=== PATIENT | female | born 1955 | race Caucasian/White ===

== ENCOUNTER 2023-04-26 14:08 | Outpatient (AMB) | payer MEDICARE, SELFPAY ==
--- NOTE | 2023-04-26 14:24 | A.OFFVIS_ITS ---
Intake Vital Signs 04/26/23 14:40 Height 5 ft 2 in Weight 155 lb 10.342 oz BMI 28.5 BP 164/72 H Blood Pressure Location Lt brachial Position Sitting Pulse 84 Temp 97.7 F Temp Source Skin Pulse Oximetry (%) 98 Intake Visit Reasons: Multiple Joint Pain Intake Note: * New pt presents today for joint pain consult. Previously seen by ATC * C/o pain in multiple areas. 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 Accompanied by: Self / Same As Patient Allergies adhesive tape Adverse Reaction (Unknown, Verified 04/26/23 14:46) Itching amlodipine [From Norvasc] Adverse Reaction (Unknown, Verified 04/26/23 14:46) Unknown gabapentin [From Neurontin] Adverse Reaction (Unknown, Verified 04/26/23 14:46) Nausea and Vomiting, Vision changes acetaminophen [From Percocet] Adverse Reaction (Verified 04/26/23 14:46) Vomiting amitriptyline Adverse Reaction (Verified 04/26/23 14:46) Hallucinations brompheniramine [From Bromfed] Adverse Reaction (Verified 04/26/23 14:46) Hives cortisone Adverse Reaction (Verified 04/26/23 14:46) Shortness of Breath, Wheezing diphenhydramine [From Benadryl] Adverse Reaction (Verified 04/26/23 14:46) Hives nabumetone [From Relafen] Adverse Reaction (Verified 04/26/23 14:46) Unknown oxycodone [From Percocet] Adverse Reaction (Verified 04/26/23 14:46) Vomiting phenylephrine [From Bromfed] Adverse Reaction (Verified 04/26/23 14:46) Hives pregabalin [From Lyrica] Adverse Reaction (Verified 04/26/23 14:46) Edema entire body pseudoephedrine [From Bromfed] Adverse Reaction (Verified 04/26/23 14:46) Hives Medication List - Last Reconciled 04/26/23 by Amari Chou MD albuterol sulfate 90 mcg/actuation (ProAir HFA) 2 puffs inhalation Q6H PRN cholecalciferol (vitamin D3) 25 mcg PO DAILY cyclobenzaprine 10 mg PO TID PRN evening primrose oil 1,000 mg PO BID PRN fenofibrate 160 mg PO DAILY garlic extract 1,000 mg PO DAILY ibuprofen 800 mg PO Q6H PRN lisinopril-hydrochlorothiazide 20-25 mg 1 tab PO DAILY magnesium 250 mg PO DAILY metoprolol succinate ER 25 mg PO DAILY omega 4-svn-[id number]-fish oil 300-1,000 mg (Fish Oil) 1 cap PO BID vitamin B complex (B Complex-Vitamin B12 tablet) 1 tab PO DAILY HPI HPI Comments History of Present Illness Details This is a 68-year-old female who presents for evaluation of multiple joint pain. She was diagnosed with fibromyalgia many years ago and she received a few medications and she had side effects. She had managed fibromyalgia over the years with staying active. She mentions however that she is starting to feel different pain. The pain is more in her bones rather than her muscles. She is having some pain and stiffness in her hands, occasionally difficultly making a tight fist. She has been having pain in her tailbone, worse with sitting down, sometimes she has to put a pillow under her. This has been ongo ing for the last 6 months or so. Denies any trauma to her buttock area. Pain does not radiate down worse. She is unaware of any family history of autoimmune rheumatic disease. [facility] Medical History Asthma Essential hypertension Fibromyalgia History of ovarian cancer Hypothyroidism IBS (irritable bowel syndrome) Osteopenia Surgical History H/O cervical spine surgery H/O shoulder surgery History of lumbar surgery Hx of cholecystectomy Hx of colonoscopy S/P NOEMÍ (total abdominal hysterectomy) Family History Mother Osteoarthritis Father Stomach cancer Paternal Grandmother Alzheimer's disease Paternal Grandfather Stroke Brother Colon cancer, Onset Age: 38 Paternal Aunt Cancer Emphysema of lung Maternal Aunt Alzheimer's disease Social History Household Members: None Alcohol intake: current Alcohol intake frequency: does not drink Patient Tobacco Use Status: Never used Tobacco Current occupational status: retired Female Reproductive History Menstrual Total pregnancies: 5 Number of Living Children: 4 Ab induced: 1 Review of Systems Const Reports fatigue and Reports weakness Eyes Reports dry eyes and Reports itchy eyes Card Reports no additional complaints Resp Reports wheezing Musc Reports back pain, Reports arthralgias and Reports stiffness Neuro Reports weakness Endo Reports fatigue Aller/Immun Reports itchy eyes and Reports wheezing Physical Exam Vital Signs: Last Vital Signs Temp 97.7 F 04/26/23 14:40 Pulse 84 04/26/23 14:40 BP 164/72 H 04/26/23 14:40 Pulse Ox 98 04/26/23 14:40 BMI result Body Mass Index 28.5 Const General: cooperative, healthy appearing and comfortable Nutritional Appearance: overweight Orientation/consciousness: patient oriented x3 Limitations: no limitations HEENT Head: Yes normocephalic and Yes atraumatic Mouth: moist mucous membranes Resp Effort & Inspection: normal respiratory effort and able to speak in complete sentences Back/Spine/Pelvis Other: Some tenderness to her tailbone area without visible swelling or warmth Negative straight leg raise test bilaterally Negative Rosa Maria test bilaterally Neuro General: patient oriented x3 Extrem Other: Osteoarthritic changes of both hands with no active synovitis Normal nailfold capillaroscopy Normal range of motion of both shoulders Few fibromyalgia tender points Assessment & Plan Assessment & Plan (1) Sacral pain: Code(s): M53.3 - Sacrococcygeal disorders, not elsewhere classified Plan: This is a 68-year-old female with past medical history of fibromyalgia who presents for evaluation of multiple joint pain. On exam patient has some osteoarthritic changes of her hands without active synovitis. I reassured patient about the benign nature of this condition. Will order lumbosacral spine x-rays for evaluation of her sacral pain. Will refer patient to physical therapy for her back pain. Orders: Orders XR sacrum coccyx min 2V Today M53.3 - Sacrococcygeal disorders, not elsewhere classified XR lumbar spine 4V min Today M53.3 - Sacrococcygeal disorders, not elsewhere classified PT Evaluation and Treatment Today M51.36 - Other intervertebral disc degeneration, lumbar region, M53.3 - Sacrococcygeal disorders, not elsewhere classified Coding Level of Care Code New Pt Level 3 (76780) Diagnoses Sacral pain M53.3
[2023-04-26 14:40] VITALS: BP 164/72; PULSE 84; TEMP 36.5; O2SAT 98; BMI 28.5
== END 2023-04-26 15:32 | disposition home or self-care (01) ==
PROVIDERS: PCP Physician Assistant Medical; Visit Provider Student in an Organized Health Care Education/Training Program
DX: M53.3 Sacrococcygeal disorders, not elsewhere classified (principal)
CPT/HCPCS: 99203

== ENCOUNTER → 2023-04-26 14:08 | Outpatient (BNVA) | payer MEDICARE, SELFPAY | PROVIDERS: Visit Provider Student in an Organized Health Care Education/Training Program | DX: M53.3 Sacrococcygeal disorders, not elsewhere classified (principal); M51.36 Other intervertebral disc degeneration, lumbar region; M79.7 Fibromyalgia | CPT/HCPCS: 99202 ==

== ENCOUNTER 2023-06-19 10:00 | Outpatient (RCR) | payer MEDICARE, SELFPAY ==
--- NOTE | 2023-05-14 13:05 | MHC.PT.EP ---
[facility] [place] Office [place] Office [place] Office [address] Elina Quinteros [address] [phone] F: [phone] F: [phone] F: [phone] F: [phone] Physical Therapy Plan of Care Date of Evaluation: Date of Surgery: Diagnosis: Lumbar DDD Assessment: Pt is a 68 y/o female with fibromyalgia and osteoporosis who is referred to PT for eval and treat of lumbar DDD who presents with sacrococcygeal pain resulting in decreased tolerance for prolonged sitting, walking duration, bending forward, and sleep secondary to increased muscle tension in the low back, hamstring tightness, decreased hip strength, decreased lumbar mobility, and pain. Pt is motivated and is deemed an appropriate candidate to receive skinned PT services to address their physical impairments in order to improve their functional ability. Frequency and Duration: The patient will be seen 2x/wk x4wks Short Term Goals: Initiate HEP Improve baseline pain to <5/10; initial:7/10 Prison Goals: [place] with HEP Pt will improve score on Cesar outcome measure by at least 13 points; initial /50 Pt will improve hip flexion strength by at least 1/2 MMT grade; Initial: 4/5 Pt will be able to sit for duration without any pain; initial: can only sit as she likes providing that she has her choice of seating. Treatment Plan: Modalities to reduce pain, spasms and effusion. Manual therapy to restore motion and function. Therapeutic exercise to improve strength and flexibility. Neuromuscular re-education for posture and balance. Therapeutic activities to return to functional activities of daily living. Electronically signed by: Johnson Martinez PT. Please sign and return to therapist. Thank you for your referral.
--- NOTE | 2023-07-02 09:11 | MHC.PT.DC ---
[facility] [place] [facility] [place] Office [place] Office [address] Elina Quinteros [address] [phone] F: [phone] F: [phone] F: [phone] F: [phone] Physical Therapy Discharge Report Diagnosis: Lumbar DDD Date of Surgery: Date of Evaluation: 05/14/23 Date of Discharge: 07/02/23 Treatments to Date: 10 Cancellations to Date: No Shows to Date: Discharge Status: Improved Function Independent with HEP Patient Elected to Stop Discharge Summary: Pt had been making progress towards her therapeutic goals though unfortunately she reports a serious infection and discharged from care to manage this. Electronically signed by: Johnson Martinez PT. Please sign and return to therapist. Thank you for your referral.
== END 2023-07-02 09:11 | disposition home or self-care (01) ==
LOC: HO.PTCHIC 10:00
PROVIDERS: PCP Physician Assistant Medical; Visit Provider Student in an Organized Health Care Education/Training Program
DX: M53.3 Sacrococcygeal disorders, not elsewhere classified (principal); M51.36 Other intervertebral disc degeneration, lumbar region
CPT/HCPCS: 97110; 97140; 97161; 97530